=== PATIENT | male | born 1960 | race Caucasian/White ===

== ENCOUNTER → 2021-08-29 09:58 | Outpatient (CLI) | payer BC, SELFPAY | PROVIDERS: PCP Nurse Practitioner Family; Visit Provider Physician Assistant | DX: I25.10 Atherosclerotic heart disease of native coronary artery without angina pectoris (principal); R94.31 Abnormal electrocardiogram [ECG] [EKG] | CPT/HCPCS: 93306 ==

== ENCOUNTER → 2021-09-18 11:58 | Outpatient (CLI) | payer BC, SELFPAY ==
--- NOTE | 2021-09-18 | CA_ITS ---
APPROVED REPORT Exam: Pharmacologic Technologist: Elly Squires, Ht: 5 ft 10 in Wt: 201 lbs BSA: 2.09 m2 HR: 69 bpm BP: 143/101 mmHg Rhythm: NSR, PVC, PACs, LPFB, poor R wave progression, NS T wave abn in 3 and AVF Medical History Medical History: HTN, Hyperlipidemia, Smoking Medications: Lisinopril,,,,, Aspirin,,,,, Pantoprazole,,,,, Centrum Silver,,,,, Simvasatin,,,,, Cardiac Risk Factors: HTN, Hyperlipidemia, Smoking Stress Test Details Test: LEXISCAN HR Resting HR: 93 bpm Max Heart Rate (APMHR): 161.959648 bpm Max HR Achieved: 106 bpm Target HR (85% APMHR): 136.112123 bpm % of APMHR: 65.84 Recovery HR: 86 bpm BP Resting BP: 143/101 mmHg Max BP: 177/93 mmHg Recovery BP: 138.0/96.0 mmHg ECG Resting ECG: NSR, PVC, PACs, LPFB, poor R wave progression, NS T wave abn in 3 and AVF Clinical Exercise duration: 04:01 min Highest Stage Achieved: Stress ECG Conclusion During lexiscan pt experinced SOA, lightheaded. No change in pretest CP. Occasional PAC and PVC. Exaggeration of baseline abns in leads 3 and aVF. Unremarkable lexiscan stress. Myoview images reported separately. Electronically signed by : Danny Ferreira MD 09/19/2021 11:26:29
--- NOTE | 2021-09-18 11:58 | NM_ITS ---
APPROVED REPORT Exam: Nuclear Stress Test Indication: CAD, H/O ME, CABG, HTN, HYPERLIPIDEMIA, TOB USE, FM HX. ANGINA, C.P., SOB, ABN EKG Patient Location: Outpatient Stress Tech: Elly Squires NM Tech:Elana Styles IRMAT RT (R)(N)(M) Ht: 5 ft 10 in Wt: 201 lbs HR: 69 bpm BP: 143/101 mmHg BSA: 2.09 m2 TID: 1.08 BMI: 28.8 History: CAD, H/O ME, CABG, HTN, HYPERLIPIDEMIA, TOB USE, FM HX. ANGINA, C.P., SOB, ABN EKG Procedure: Patient received a 0.4 mg of intravenous Lexiscan, resting heart rate 69 bpm, resting blood pressure 143/101 mmHg, with Lexiscan maximum heart rate achived was 104 bpm which is Less than 85 % of the maximum predicted heart rate and blood pressure was 164/103 mmHg. With Lexiscan, patient denied any complaint of chest pain. Electrocardiogram Resting electrocardiogram shows sinus rhythm, with Lexiscan there is less than 1.[address] segment depression noted from the baseline EKG. The EKG portion of the Lexiscan is nondiagnostic. Cardiac Stress and Resting SPECT Images: Cardiac Stress and Resting SPECT images were obtained using technetium 99m Myoview 31.7 mCi stress and 10.61 mCi at rest. Gated SPECT analysis of segmental wall motion and calculation of the ejection fraction also done. Prone images were also obtained. Cardiac stress and rest SPECT may show partial reversible defect involving the inferior and inferior apical wall, computer derived ejection fraction is 46% with moderate inferior and inferior apical wall hypokinesis, right ventricle is mildly enlarged with normal contractility. Conclusion: 1. The EKG portion of the Lexiscan is nondiagnostic. 2. Scintigraphic evidence of mixed ischemia and scar involving the inferior and inferior apical wall, compared to ejection fraction 46% with segmental wall motion abnormality described above, right ventricle is mildly enlarged with normal contractility. 3. Abnormal Lexiscan Myoview study. Electronically signed by : Danny Ferreira MD 09/19/2021 11:29:01
== END ==
LOC: RAD 11:58
PROVIDERS: PCP Nurse Practitioner Family; Visit Provider Nurse Practitioner Family
DX: R06.00 Dyspnea, unspecified (principal); I20.8 Other forms of angina pectoris; R94.31 Abnormal electrocardiogram [ECG] [EKG]; Z95.1 Presence of aortocoronary bypass graft
CPT/HCPCS: 78452; 93017; A9502; J2785

== ENCOUNTER → 2021-09-29 09:24 | Outpatient (CLI) | payer BC, SELFPAY ==
[2021-09-29 09:46] LABS: Basophils # 0.1 K/mm3 (0-0.2); Basophils % 1.1 % (0.1-2.0); Eosinophils # 0.3 K/mm3 (0.0-0.4); Eosinophils % 3.9 % (0.1-12.0); Hematocrit 47.7 % (42.0-52.0); Hemoglobin 15.5 g/dL (14.1-18.0); Lymphocytes # 1.9 K/mm3 (0.7-4.5); Lymphocytes % 28.7 % (10-50); Mean Corpuscular HGB Conc 32.4 g/dL (31.8-35.4); Mean Corpuscular Hemoglobin 33.6 pg (27.0-31.2); Mean Corpuscular Volume 103.9 fl (80-94); Mean Platelet Volume 8.7 fl (7.4-10.4); Monocytes # 0.5 K/mm3 (0.1-1.0); Monocytes % 7.2 % (1.7-9.3); Neutrophils # 3.9 K/mm3 (1.8-7.8); Neutrophils % 59.2 % (37.0-80.0); Platelet Count 203 K/mm3 (142-424); Red Cell Distribution Width 13.6 % (11.5-17.5); White Blood Count 6.6 K/mm3 (4.8-10.8)
[2021-09-29 10:15] LABS: Chloride 102 mmol/L (98-107); Sodium 136 mmol/L (136-145)
[2021-09-29 10:16] LABS: Potassium 4.6 mmoL/L (3.5-5.1)
[2021-09-29 10:18] LABS: Anion Gap 8.6 mEq/L (5-15); Blood Urea Nitrogen 14 mg/dl (9-20); Carbon Dioxide 30 mmol/L (22.0-30.0); Estimated Glomerular Filt Rate 115 ml/min (>60); GFR (African American) 140 ML/MIN (>60)
[2021-09-29 10:19] LABS: Calcium 9.5 mg/dl (8.4-10.2); Glucose 107 mg/dl (74-100)
== END ==
PROVIDERS: PCP Nurse Practitioner Family; Visit Provider Nurse Practitioner
DX: Z01.812 Encounter for preprocedural laboratory examination (principal); Z20.822 Contact with and (suspected) exposure to COVID-19; I20.8 Other forms of angina pectoris; R06.00 Dyspnea, unspecified; R94.31 Abnormal electrocardiogram [ECG] [EKG]; Z95.1 Presence of aortocoronary bypass graft; Z95.5 Presence of coronary angioplasty implant and graft
CPT/HCPCS: 36415; 80048; 85025; C9803; U0003; U0005

== ENCOUNTER 2021-09-30 08:05 | Day surgery (SDC) | payer BC, SELFPAY ==
[2021-09-30] VITALS (16 sets, daily range): BP systolic 112–179; BP diastolic 60–101; PULSE 57–85; RESP 17–20; TEMP 36.9; O2SAT 94–100; BMI 28.5
--- NOTE | 2021-09-30 07:03 | IR_ITS ---
APPROVED REPORT Patient Location: Outpatient PROCEDURES Left heart catheterization Selective coronary angiogram Left ventriculogram Selective engagement left internal mammary artery Selective engagement of saphenous vein graft to the right coronary Drug-eluting stent deployment to the proximal mid and distal saphenous vein graft with 3 contiguous drug-eluting stents Drug-eluting stent deployment to the proximal and mid nondominant circumflex artery with 2 contiguous drug-eluting stents INDICATION Coronary artery disease, History of coronary bypass surgery, High risk abnormal Myoview, Associated angina pectoris, Informed consent was obtained prior to the procedure. COMPLICATIONS NONE Estimated Blood Loss: LESS THAN 10 ML TECHNIQUE One percent lidocaine used to anesthetize the right groin. The right femoral artery was accessed via the Seldinger technique and a 5 [place] sheath was placed in the right femoral artery. A JL 4, JR4 catheter were used to perform left heart catheterization, left ventriculogram selective coronary angiography as well as selective engagement of the 1 vein graft and selective angiography of the left internal mammary artery. At the end of the diagnostic procedure therapeutic heparin was administered giving a therapeutic ACT and the 5 [place] Helenian sheath was exchanged for a 6 [place] Helenian sheath followed by a multipurpose catheter being placed in the saphenous vein graft to the right coronary. A Choice PT extra-support wire was placed distally and a 3 mm x 38 mm resolute [place] stent was placed distally at 24 corey. An additional 3 mm x 38 mm resolute Mohsen stent was placed proximal to the first stent yet still overlapping it and deployed at 24 corey. An additional 3.5 x 38 mm resolute [place] stent was placed proximal to the second stent yet still proximal to the stent and deployed at 24 corey. The balloon was then advanced and used to post dilate in the midportion at 24 corey. GISSELLE-3 flow was present before and after the procedure. After achieving excellent angiographic results the apparatus was removed and a JR4 guide catheter was placed in the left main artery followed by the Choice PT extra-support wire being placed in the circumflex artery. A 2.25 x 18 mm resolute [place] stent was deployed at 24 corey reducing the critical stenosis. An additional 2.5 x 18 mm resolute [place] stent was placed proximal to the first and is still overlapping it and deployed at 20 corey reducing the stenosis to 0%. GISSELLE-3 flow was present before and after the procedure. At the end of procedure the apparatus was removed the groin is reprepped closure change sheath was removed and hemostasis was achieved using TR banding patient was transferred to the postop putting in stable condition ANGIOGRAPHIC RESULTS The left main artery Normal The left anterior descending artery Ostially occluded The circumflex artery Gives rise to a large ramus intermedius which has a proximal eccentric 50% stenosis. The true circumflex artery has a proximal 50% followed by a concentric 90% stenosis extending into the first obtuse marginal artery. The second obtuse marginal artery is ostially occluded The right coronary artery Dominant and ostially occluded The HOFFMAN ventriculogram reveals Ejection fraction of 45% The left ventricular end-diastolic pressure 15 mmHg ROGER to LAD widely patent Saphenous to right coronary artery is severely diffusely diseased with multiple 50 6080 and 90% stenoses IMPRESSION Severe to critical two-vessel coronary disease as described above Successful stenting the saphenous vein graft critical disease reduced to 0% with 3 contiguous drug-eluting stents Successful stenting of the proximal to mid circumflex artery critical di
[2021-09-30 14:42] LABS: CATHL Activated Clotting Time > 400 SEC (74-125)
--- NOTE | 2021-09-30 15:17 | HMH.PHACLD ---
Kaden Bernard has received discharge medication counseling on the following medications: PATIENT IS CURRENTLY TAKING CARVEDILOL 3.125 MG BID, LISINOPRIL 10 MG DAILY, ASPIRIN [address], AND SIMVASTATIN 20 MG HS. ADDING BRILINTA 90 MG BID.
== END 2021-09-30 17:48 | disposition home or self-care (01) ==
LOC: CATHLAB 08:06
PROVIDERS: PCP Nurse Practitioner Family; Visit Provider Internal Medicine
DX: I25.118 Atherosclerotic heart disease of native coronary artery with other forms of angina pectoris (principal); F17.210 Nicotine dependence, cigarettes, uncomplicated; R94.31 Abnormal electrocardiogram [ECG] [EKG]; R94.39 Abnormal result of other cardiovascular function study; Z95.1 Presence of aortocoronary bypass graft; Z79.01 Long term (current) use of anticoagulants; Z79.899 Other long term (current) drug therapy; I42.9 Cardiomyopathy, unspecified; I25.708 Atherosclerosis of coronary artery bypass graft(s), unspecified, with other forms of angina pectoris
CPT/HCPCS: 85347; 92928; 92937; 93459; 99152; 99153; C1725; C1769; C1874; C1876; C1894; C9600; C9604; J1644; Q9967

== ENCOUNTER 2024-07-10 09:56 | Day surgery (SDC) | payer BC, SELFPAY ==
[2024-07-07 14:47] VITALS: BMI 31.1
[2024-07-10 10:20] VITALS: BP 123/87; PULSE 79; RESP 18; TEMP 36.6; O2SAT 98
--- NOTE | 2024-07-10 11:11 | EXP.HP ---
History of Present Illness *Admission Date: 07/10/24 *Reason for visit:: Positive Cologuard *History of present illness: Mr. Bernard is a 64-year-old gentleman who is here for screening colonoscopy secondary to a positive Cologuard. The examination is deemed medically necessary for screening colonoscopy. The patient has been seen, interviewed and examined prior to the procedure by both myself and the anesthesia provider. [facility] Disclaimer: The information contained in this section may have been updated after the patient was seen, as this information can be updated by other users. Medical History HTN (hypertension) HLD (hyperlipidemia) COPD (chronic obstructive pulmonary disease) case management patient Tobacco dependence syndrome Abnormal cardiovascular stress test Atypical angina Surgical History History of heart bypass surgery Social History (Updated 07/10/24 @ 10:20 by Leah Fonseca RN) Smoking Status: Current every day smoker alcohol intake: never substance use type: denies use current occupational status: employed Travel in the last 8 weeks: Inside the [place] household members: spouse housing: house caffeine: Yes Have you lived/traveled outside [place] in past 30 days?: No Contact w/someone who lives/traveled outside US past 30 days?: No Exposure to someone with infectious disease in past 14 days?: No Do you have a fever (greater than 100.4 F or 38 C)?: No Have you tested positive for COVID-19: No Exposed to someone with COVID-19 in past 14 days?: No Do you have a sore throat?: No Do you have a cough?: No Do you have any weakness?: No Do you have any diarrhea?: No Are you experiencing any unusual bleeding?: No Do you have any muscle aches/pain?: No Do you have any abdominal pain?: No Are you experiencing loss of taste or smell?: No Other Medical History Have you received the Flu Vaccine for this season: No Have you received the Pneumonia Vaccine: No Review of Systems Review of Systems Review of systems (narrative): Negative *Cardiovascular Comments: Negative *Gastrointestinal Comments: Negative *Genitourinary Comments: Negative *Musculoskeletal Comments: Negative *Neurologic Comments: Negative Meds Home Medications and Allergies Home Medications ?Medication ?Instructions ?Recorded ?Confirmed ?Type aspirin 81 mg tablet,delayed 81 mg PO DAILY 08/20/21 07/10/24 History release lisinopril 10 mg tablet 10 mg PO DAILY 08/20/21 07/10/24 History fmjiftfb-coi-qevnl acid 0.4 1 tab PO DAILY 08/20/21 07/10/24 History mg-lycopene 300 mcg-lutein 250 mcg tablet (Centrum Silver) pantoprazole 20 mg tablet,delayed 20 mg PO DAILY 08/20/21 07/10/24 History release albuterol sulfate 90 mcg/actuation 2 puff inhalation Q4-6H PRN COPD 09/22/21 07/10/24 History aerosol inhaler (ProAir HFA) fluticasone fur. 100 mcg-umeclid 1 inh inhalation DAILY 04/08/23 07/10/24 History 62.5 mcg-vilant 25 mcg inhalat.powder (Trelegy Ellipta) isosorbide mononitrate 30 mg See Rx Instructions .Route 08/31/23 07/10/24 Rx tablet,extended release 24 hr .COMPLEX #90 tabs cholecalciferol (vitamin D3) 1,250 1,250 mcg PO WEEKLY 10/11/23 07/10/24 History mcg (50,000 unit) capsule tadalafil 20 mg tablet 20 mg PO .prn 10/11/23 07/10/24 History clopidogrel 75 mg tablet See Rx Instructions .Route 10/13/23 07/10/24 Rx .COMPLEX #90 tabs metoprolol succinate 25 mg See Rx Instructions .Route 10/18/23 07/10/24 Rx tablet,extended release 24 hr .COMPLEX #90 tabs atorvastatin 40 mg tablet See Rx Instructions .Route 11/12/23 07/10/24 Rx .COMPLEX #90 tabs sodium,potassium,mag sulfates 17.5 See Rx Instructions PO .COMPLEX 06/26/24 07/10/24 Rx gram-3.13 gram-1.6 gram oral soln #354 mL (Suprep Bowel Prep Kit) New Prescriptions to Start Prescriptions: Allergies Allergy/AdvReac Type Severity Reaction Status Date / Time carvedilol (From Coreg) AdvReac Mild chest Verified 07/10/24 10:27 tightness Exam Data for Last 24 hours Vital signs and Labs for Last 24 Hours: Temp Pulse Resp BP Pulse Ox O2 Del Method 97.8 F 79 18 123/87 98 Room Air 07/10/24 10:20 07/10/24 10:20 07/10/24 10:20 07/10/24 10:20 07/10/24 10:20 07/10/24 10:20 I & O for Last 24 hours: Intake & Output 07/07/24 07/08/24 07/09/24 07/10/24 23:59 23:59 23:59 23:59 Weight 217 lb 6.894 oz *Routine HEENT Exam Head: Present normocephalic Eye: Present EOMI and PERRL ENT: Present mucous membranes moist *Routine Neck Exam Neck: Present supple *Routine Respiratory Exam Respiratory: Present CTA bilaterally *Routine Cardiovascular Exam Cardiovascular: Present RRR *Routine Abdominal Exam Abdominal: Present soft and normoactive bowel sounds; Absent tenderness *Routine Rectal Exam Rectal:: deferred *Routine Genitalia Exam Genitalia:: deferred *Routine Extremities Exam Extremities: Absent cyanosis, clubbing or edema *Routine Skin Exam Skin: Present warm; Absent rash *Routine Neurological Exam Neurological: Present alert and oriented X3 Assessment and Plan *Assessment and plan (1) Positive colorectal cancer screening using Cologuard test: Status: Acute Category: Medical Code(s): R19.5 - Other fecal abnormalities Plan A/P: 1. Positive Cologuard is the preprocedural diagnosis. The patient will be anesthetized/sedated using MAC sedation. The patient has been seen and examined. Cardiac and lung assessment prior to the examination is stable. Proceed with planned screening colonoscopy
[2024-07-10 11:16] VITALS: O2SAT 100
--- NOTE | 2024-07-10 11:16 | EXP.ANES.CKL ---
[facility] Disclaimer: The information contained in this section may have been updated after the patient was seen, as this information can be updated by other users. Medical History HTN (hypertension) HLD (hyperlipidemia) COPD (chronic obstructive pulmonary disease) case management patient Tobacco dependence syndrome Abnormal cardiovascular stress test Atypical angina Surgical History History of heart bypass surgery Social History (Updated 07/10/24 @ 10:20 by Leah Fonseca RN) Smoking Status: Current every day smoker alcohol intake: never substance use type: denies use current occupational status: employed Travel in the last 8 weeks: Inside the [place] household members: spouse housing: house caffeine: Yes Have you lived/traveled outside [place] in past 30 days?: No Contact w/someone who lives/traveled outside [place] past 30 days?: No Exposure to someone with infectious disease in past 14 days?: No Do you have a fever (greater than 100.4 F or 38 C)?: No Have you tested positive for COVID-19: No Exposed to someone with COVID-19 in past 14 days?: No Do you have a sore throat?: No Do you have a cough?: No Do you have any weakness?: No Do you have any diarrhea?: No Are you experiencing any unusual bleeding?: No Do you have any muscle aches/pain?: No Do you have any abdominal pain?: No Are you experiencing loss of taste or smell?: No [facility] Anesthesia Checklist Patient Identification Patient Identification: Verbal (Name & ) Structural Data Admitted From: Home Planned Operative Procedure/s: colonoscopy Consent for Planned Operative Procedure(s) Verified: Yes NPO Status Verified Time NPO: 00:00 Airway Assessment Mallampati Score:: Class II C-Spine Mobility Assessed: Yes TMJ Mobility Assessed: Yes Dentition: Good Dentition Neurological Assessment Level of Consciousness: Awake, Alert and Appropriate Anesthesia Plan Anesthesia Risk discussed: Yes Anesthesia Plan: Verified ASA Class: III Anesthesia Type: MAC
--- NOTE | 2024-07-10 11:23 | HMH.PROCNOTE ---
[facility] Procedure Note Date: 07/10/24 Time: 11:39 Procedure Note:: Colonoscopy Procedure Report: Colonoscopy with cold snare polypectomy Endoscopist: Panda Christensen II, MD Referring physician: GREGG Vargas/[facility], [address] [place] [address] , [place] [address] Date of Procedure: July 10, 2024 Equipment: Olympus 190 variable stiffness pediatric colonoscope Sedation: MAC sedation Indication: Mr. Bernard is a 64-year-old gentleman who is here for initial screening colonoscopy secondary to a recently positive Cologuard test 3 months ago. He did have a negative Cologuard test 2 years ago. He reports no abdominal pain, weight loss, change in his bowel habits or rectal bleeding. He reports no known family history of colon cancer. Procedure: Prior to the procedure, a history and physical exam was performed, and patient's medications and allergies were reviewed. The risks, benefits and alternatives of the sedation and procedure were discussed with the patient. All questions were answered and informed consent was obtained. The patient was brought to the procedure room. Patient identification and proposed procedure were verified by the physician and the nurse. The patient was placed in a left lateral decubitus position and the scope was passed under direct vision. Throughout the procedure, the patient's blood pressure, pulse, and oxygen saturations were monitored continuously. The colonoscopy was accomplished without difficulty. The patient tolerated the procedure well. Findings: On digital rectal examination there was normal rectal tone. There were no external hemorrhoids. The prostate was 2+, smooth, soft, symmetric without nodules. The colonoscope was introduced through the anal canal to the rectum and advanced to the cecum. The ileocecal valve and appendiceal orifice were identified. The scope was advanced a short distance into the ileum which appeared grossly normal. The scope was then withdrawn into the colon. The cecum, ascending, transverse and descending colon were grossly normal. There were 2 diminutive polyps (sigmoid x 2 (4 and 5 mm)) which were both removed via cold snare polypectomy. The rectum itself was normal. There were no mucosal abnormalities identified. Upon retroflexion within the rectum there were grade 1-2 internal hemorrhoids. The preparation was excellent throughout with Bryant Preparation Score of 9. The cecal time was 12 minutes. Impression: 1. Diminutive sigmoid polyps x 2 (probable hyperplastic polyps) 2. Grade 1-2 internal hemorrhoids Plan: I will follow-up the polyp histology and if the polyps are hyperplastic, he will not require surveillance colonoscopy again for 10 years. I would encourage psyllium bulking fiber supplementation on a maintenance basis.
[2024-07-10 11:40] VITALS: BP 106/49; PULSE 81; RESP 17; TEMP 36.6; O2SAT 97
[2024-07-10 11:50] VITALS: BP 96/52; PULSE 83; RESP 17; O2SAT 96
[2024-07-10 12:00] VITALS: BP 99/59; PULSE 75; RESP 18; O2SAT 97
[2024-07-10 12:10] VITALS: BP 100/60; PULSE 67; RESP 17; O2SAT 97
== END 2024-07-10 12:30 | disposition home or self-care (01) ==
PROVIDERS: Visit Provider Internal Medicine Gastroenterology
PROC: 0DJD8ZZ Inspection of Lower Intestinal Tract, Via Natural or Artificial Opening Endoscopic (ICD-10-PCS; CPT 45378; principal; 2024-07-10 11:30)
DX: R19.5 Other fecal abnormalities (principal); Z12.11 Encounter for screening for malignant neoplasm of colon; K63.5 Polyp of colon; K64.8 Other hemorrhoids
CPT/HCPCS: 45385